=== PATIENT | female | born 1995 | race Caucasian/White ===

== ENCOUNTER 2019-06-06 08:39 | Outpatient (CLI) | payer OTHER ==
[~2019-06-06 08:39] MED LIST: ALBU8.5H8 INH; FLUT12AE3 INH; PREN1TAB62 PO
[2019-06-06] MEDS ORDERED: OMNIPAQUE 350 MG/ML, 100ML BOTTLE ONE (16:20)
== END 2019-06-06 23:59 | disposition home or self-care (01) ==
LOC: CFH 08:39
PROVIDERS: ATTEND Family Medicine
DX: K76.0 Fatty (change of) liver, not elsewhere classified (principal); R16.1 Splenomegaly, not elsewhere classified; N83.202 Unspecified ovarian cyst, left side
CPT/HCPCS: 74177; Q9967